=== PATIENT | female | born 1950 | race Caucasian/White ===

== ENCOUNTER → 2016-08-12 | Outpatient (CLI) | payer OTHER | LOC: RAD 09:53 | DX: E03.8 Other specified hypothyroidism (principal); E66.3 Overweight; E78.2 Mixed hyperlipidemia; E87.2 Acidosis; F17.210 Nicotine dependence, cigarettes, uncomplicated; F41.1 Generalized anxiety disorder; G43.C0 Periodic headache syndromes in child or adult, not intractable; H66.92 Otitis media, unspecified, left ear; H92.02 Otalgia, left ear; K21.9 Gastro-esophageal reflux disease without esophagitis; M54.5 Low back pain; R07.82 Intercostal pain; R19.7 Diarrhea, unspecified; R35.0 Frequency of micturition; R74.0 Nonspecific elevation of levels of transaminase and lactic acid dehydrogenase [LDH]; S16.1XXA Strain of muscle, fascia and tendon at neck level, initial encounter; Z71.6 Tobacco abuse counseling | CPT/HCPCS: 71020 ==

== ENCOUNTER → 2016-09-25 | Outpatient (CLI) | payer OTHER | LOC: US 08:24 | DX: R74.0 Nonspecific elevation of levels of transaminase and lactic acid dehydrogenase [LDH] (principal); E03.8 Other specified hypothyroidism; E66.3 Overweight; E78.2 Mixed hyperlipidemia; E87.2 Acidosis; F17.210 Nicotine dependence, cigarettes, uncomplicated; F41.1 Generalized anxiety disorder; G43.C0 Periodic headache syndromes in child or adult, not intractable; H66.92 Otitis media, unspecified, left ear; H92.02 Otalgia, left ear; K21.9 Gastro-esophageal reflux disease without esophagitis; M54.5 Low back pain; R07.82 Intercostal pain; R19.7 Diarrhea, unspecified; R35.0 Frequency of micturition; S16.1XXA Strain of muscle, fascia and tendon at neck level, initial encounter; Z71.6 Tobacco abuse counseling | CPT/HCPCS: 76705 ==